=== PATIENT | male | born 2005 | race Caucasian/White ===

== ENCOUNTER 2023-06-30 16:53 | Inpatient (IN) | payer OTHER ==
[~2023-06-30] VITALS: Ht 182.9 cm; Wt 62.3 kg
[2023-06-30 17:44] LABS: HEMATOCRIT 41.2 % (42.0-52.0); HEMOGLOBIN 14.1 g/dl (13.5-17.5); MEAN CORPUSCULAR HGB CONC 34.2 g/dl (32.0-36.5); MEAN CORPUSCULAR VOLUME 90.5 fl (80.0-96.0); PLATELET COUNT, AUTOMATED 225 10^3/uL (150-450); RED BLOOD COUNT 4.55 10^6/uL (4.30-6.10); WHITE BLOOD COUNT 8.5 10^3/uL (4.0-10.0)
[2023-06-30 18:10] LABS: ETHYL ALCOHOL (ETHANOL) < 0.003 % (0.000-0.010)
[2023-06-30 18:11] LABS: ACETAMINOPHEN LEVEL < 2.0 UG/ML (10.0-20.0)
[2023-06-30 18:12] LABS: ALKALINE PHOSPHATASE 117 U/L (46-116); ALT/SGPT 19 U/L (7.0-40); AST/SGOT 23 U/L (<34); BILIRUBIN,DIRECT 0.4 MG/DL (<0.4); BLOOD UREA NITROGEN 15 MG/DL (9-23); CALCIUM LEVEL 9.6 MG/DL (8.5-10.1); CARBON DIOXIDE LEVEL 29 MMOL/L (20-31); CHLORIDE LEVEL 106 MMOL/L (98-107); CREATININE FOR GFR 1.09 MG/DL (0.70-1.30); GLUCOSE, FASTING 86 MG/DL (60-100); POTASSIUM SERUM 4.1 MMOL/L (3.5-5.1); SALICYLATE LEVEL < 3.0 MG/DL (<30); SODIUM LEVEL 141 MMOL/L (136-145); TOTAL PROTEIN 7.4 G/DL (5.7-8.2)
[2023-06-30 18:13] LABS: AMPHETAMINES LEVEL URINE NEGATIVE (NEGATIVE); BARBITURATES URINE NEGATIVE (NEGATIVE); BENZODIAZEPINES URINE NEGATIVE (NEGATIVE); CANNABINOIDS URINE NEGATIVE (NEGATIVE); COCAINE METABOLITE URINE NEGATIVE (NEGATIVE); METHADONE URINE NEGATIVE (NEGATIVE); OPIATES URINE NEGATIVE (NEGATIVE); PHENCYCLIDINE URINE NEGATIVE (NEGATIVE)
[2023-06-30 18:14] LABS: THYROID STIMULATING HORMONE 2.224 uIU/ML (0.48-4.17)
[2023-07-01] MEDS ORDERED: MED REC IN PROGRESS XX SCH (08:40)
[2023-07-01] MEDS ORDERED: MED REC CURRENTLY UNOBTAINABLE XX SCH (09:50)
[2023-07-01] MEDS ORDERED: HOME MED LIST COMPLETE! XX SCH (10:15)
[2023-07-02] MEDS ORDERED: ACETAMINOPHEN TAB 650MG DOSE (2X325MG) PO PRN (14:00)
[2023-07-02] MEDS ORDERED: diphenhydrAMINE 25MG CAP PO PRN (14:00)
[2023-07-02] MEDS ORDERED: MAALOX 30 ML SUSP *UDC PO PRN (14:00)
[2023-07-02] MEDS ORDERED: traZODone 50 MG TAB PO PRN (14:00)
[2023-07-02] MEDS ORDERED: IBUPROFEN 400MG TAB PO PRN (14:00)
[2023-07-02] MEDS ORDERED: MOM 30ML SUSPENSION UDC PO PRN (14:00)
[2023-07-02 14:58] VITALS: BP 114/65; TEMP 97.8; O2SAT 100
[2023-07-03 06:56] VITALS: BP 140/65; TEMP 99; O2SAT 100
[2023-07-03] MEDS: NICOTINE 7 MG/24 HR TRANSDERMAL TD PRN (15:41)
[2023-07-03] MEDS ORDERED: SERTRALINE HCL 25 MG TABLET PO ONE (16:00)
[2023-07-03 18:36] VITALS: BP 133/64; TEMP 99
[2023-07-04 06:33] VITALS: BP 111/54; TEMP 97.6; O2SAT 97
[2023-07-04] MEDS: NICOTINE 7 MG/24 HR TRANSDERMAL TD PRN (08:04)
[2023-07-04] MEDS: SERTRALINE HCL 50 MG TAB PO SCH (08:04)
[2023-07-04 18:09] VITALS: BP 115/63; TEMP 99; O2SAT 98
[2023-07-05 05:50] VITALS: BP 99/56; TEMP 97.3; O2SAT 97
[2023-07-05] MEDS: NICOTINE 7 MG/24 HR TRANSDERMAL TD PRN (08:11)
[2023-07-05] MEDS: SERTRALINE HCL 50 MG TAB PO SCH (08:11)
[2023-07-05 18:00] VITALS: BP 108/59; TEMP 98; O2SAT 100
[2023-07-06 06:36] VITALS: BP 116/52; TEMP 98; O2SAT 98
[2023-07-06] MEDS: SERTRALINE HCL 50 MG TAB PO SCH (08:01)
[2023-07-06] MEDS: NICOTINE 7 MG/24 HR TRANSDERMAL TD PRN (08:02)
[2023-07-06 18:09] VITALS: BP 120/70; TEMP 98.3; O2SAT 100
[2023-07-07] MEDS ORDERED: SERT50TA29 PO (06:34)
[2023-07-07 07:00] VITALS: BP 111/56; TEMP 98.3; O2SAT 97
[2023-07-07] MEDS: SERTRALINE HCL 50 MG TAB PO SCH (08:13)
[2023-07-07] MEDS: NICOTINE 7 MG/24 HR TRANSDERMAL TD PRN (08:14)
== END 2023-07-07 12:22 | disposition home or self-care (01) | DRG 881 ==
LOC: EDBD 16:53 → M ED 16:53 → M ED INP 07-02 14:12 → M PSY 07-02 14:50
PROVIDERS: ADMIT Student in an Organized Health Care Education/Training Program; ATTEND Student in an Organized Health Care Education/Training Program
DX: F32.A Depression, unspecified (principal); R45.851 Suicidal ideations; F43.10 Post-traumatic stress disorder, unspecified; F41.9 Anxiety disorder, unspecified; F17.210 Nicotine dependence, cigarettes, uncomplicated; F17.290 Nicotine dependence, other tobacco product, uncomplicated; Z62.810 Personal history of physical and sexual abuse in childhood; Z88.0 Allergy status to penicillin; Z56.5 Uncongenial work environment

== ENCOUNTER 2024-01-12 09:41 | Emergency (ER) | payer OTHER ==
[~2024-01-12] VITALS: Ht 180.3 cm; Wt 53.6 kg
[~2024-01-12 09:41] MED LIST: SERT50TA29 PO
[2024-01-12] MEDS ORDERED: LEXA5TAB13 PO (10:05)
[2024-01-12] MEDS ORDERED: NAPR-837 PO (11:40)
[2024-01-12 11:47] VITALS: BP 113/67; TEMP 97.2; O2SAT 99
== END 2024-01-12 11:48 | disposition home or self-care (01) ==
LOC: M ED 09:41 → EDBD 09:41 → M ED 11:48
DX: S43.402A Unspecified sprain of left shoulder joint, initial encounter (principal); V49.40XA Driver injured in collision with unspecified motor vehicles in traffic accident, initial encounter; Y92.9 Unspecified place or not applicable; Y93.9 Activity, unspecified; Y99.9 Unspecified external cause status; Z88.0 Allergy status to penicillin; Z79.899 Other long term (current) drug therapy